=== PATIENT | female | born 1985 | race Caucasian/White ===

== ENCOUNTER 2018-11-16 06:56 | Day surgery (SDC) | payer MEDICAID ==
[~2018-11-16] VITALS: Ht 167.6 cm; Wt 56.8 kg
[2018-11-16] VITALS (10 sets, daily range): BP systolic 91–118; BP diastolic 54–88
[2018-11-16] MEDS ORDERED: normal saline 1000ml 1,000 ML IV PRN (07:20)
[2018-11-16] MEDS ORDERED: HYDR2TAB28 PO (07:59)
[2018-11-16] MEDS ORDERED: FENT-90 TOP (07:59)
[2018-11-16] MEDS ORDERED: LEVO100T PO (07:59)
[2018-11-16] MEDS ORDERED: IBUP200C5 PO (07:59)
[2018-11-16] MEDS ORDERED: LIOT25TA8 PO (07:59)
[2018-11-16 08:13] LABS: BASOPHILS % (AUTO) 0.4 % (0-1); EOSINOPHILS # (AUTO) 0.1 X10'3 (0-0.9); EOSINOPHILS % (AUTO) 1.5 % (0-6); HEMATOCRIT 31.5 % (35.0-45.0); HEMOGLOBIN 9.9 g/dl (12.0-16.0); LYMPHOCYTES # (AUTO) 1.7 X10'3 (1.1-4.8); LYMPHOCYTES % (AUTO) 39.9 % (21-51); MEAN CORPUSCULAR HEMOGLOBIN 25.3 PG (27.0-31.0); MEAN CORPUSCULAR HGB CONC 31.5 % (33.0-36.5); MEAN CORPUSCULAR VOLUME 80.1 FL (78-98); MEAN PLATELET VOLUME 7.7 FL (7.4-10.4); MONOCYTES # (AUTO) 0.5 X10'3 (0-0.9); MONOCYTES % (AUTO) 11.6 % (2-12); NEUTROPHILS % (AUTO) 46.6 % (42-75); PLATELET COUNT 431 X10'3 (140-440); RED BLOOD COUNT 3.94 X10'6 (4.20-5.60); RED CELL DISTRIBUTION WIDTH 15.9 % (11.5-14.5); WHITE BLOOD COUNT 4.3 X10'3 (4.5-11.0)
[2018-11-16] MEDS ORDERED: midazolam 2 mg/2 ml injection IV PRN (08:20)
[2018-11-16] MEDS ORDERED: heparin sodium, porcine/PF 100unit/ml 5ML syringe ICATH ONE (08:20)
[2018-11-16] MEDS ORDERED: LIDOcaine 1%/PF 5ML 10 MG/ML VIAL SQ ONE (08:20)
[2018-11-16] MEDS ORDERED: fentaNYL/PF 50MCG/1 ML 2ML syringe IV PRN (08:20)
[2018-11-16 08:27] LABS: PARTIAL THROMBOPLASTIN TIME 35 SECONDS (22-32); PROTHROMBIN TIME 10.1 SECONDS (9.0-12.0)
[2018-11-16] MEDS ORDERED: LIDOcaine 1%/PF 5ML 10 MG/ML VIAL ONE ×2 (08:41→09:35)
[2018-11-16] MEDS ORDERED: fentaNYL/PF 50MCG/1 ML 2ML syringe ONE ×2 (08:42→09:36)
[2018-11-16] MEDS ORDERED: midazolam 2 mg/2 ml injection ONE ×2 (08:42→09:35)
[2018-11-16] MEDS ORDERED: heparin sodium, porcine/PF 100unit/ml 5ML syringe ONE (09:35)
[2018-11-16] MEDS ORDERED: HYDROcodone/acetaminophen 5mg/325mg tablet PO PRN (10:25)
== END 2018-11-16 11:25 | disposition home or self-care (01) ==
LOC: SSTAY O 06:56
PROVIDERS: ATTEND Radiology Diagnostic Radiology
DX: C78.01 Secondary malignant neoplasm of right lung (principal); C50.911 Malignant neoplasm of unspecified site of right female breast; E06.9 Thyroiditis, unspecified; F10.21 Alcohol dependence, in remission; Z79.1 Long term (current) use of non-steroidal anti-inflammatories (NSAID); Z87.891 Personal history of nicotine dependence; Z90.11 Acquired absence of right breast and nipple; Z92.21 Personal history of antineoplastic chemotherapy; Z79.891 Long term (current) use of opiate analgesic; Z79.899 Other long term (current) drug therapy; Z98.890 Other specified postprocedural states
CPT/HCPCS: 32405; 36415; 36561; 71045; 76937; 77001; 77012; 85025; 85610; 85730; 99152; 99153; J1642; J2001; J2250; J3010; J7030; A6219; C1788; C1894